=== PATIENT | male | born 1980 | race American Indian/Alaskan Native ===

== ENCOUNTER 2016-12-21 17:15 | Emergency (ER) | payer BC ==
--- NOTE | 2016-12-21 17:30 | ED PDOC ---
Arrival/HPI - General Time Seen by Provider: 12/21/16 17:29 Historian: Patient - History of Present Illness Narrative History of Present Illness (Text): 12/21/16 17:30 36 y/o male, no significant pmh, nkda, c/o rt. hand 3rd digit middle finger swelling and pain x 3 days with no fall or trauma. Aching pain, aggravated by touching, no numbness or tingling, able to bend and extend the 3rd digit DIPJ plus PIPJ, no palpitation, no rash, no other medical or psychological complaints. Past Medical History - Provider Review Nursing Documentation Reviewed: Yes Family/Social History - Physician Review Nursing Documentation Reviewed: Yes Family/Social History: Unknown Family HX Allergies/Home Meds Allergies/Adverse Reactions: Allergies No Known Allergies Allergy (Verified 12/21/16 17:38) Review of Systems - Review of Systems Constitutional: absent: Fatigue, Fevers Eyes: absent: Vision Changes ENT: absent: Hearing Changes Respiratory: absent: SOB, Cough Cardiovascular: absent: Chest Pain Gastrointestinal: absent: Abdominal Pain, Nausea, Vomiting Skin: Rash. absent: Pruritis, Skin Lesions, Laceration, Abscess, Ulcer Neurological: absent: Headache, Dizziness, Focal Weakness Physical Exam Vital Signs Reviewed: Yes Vital Signs Temp Pulse Resp BP Pulse Ox 12/21/16 17:38 98.7 F 88 16 131/89 97 Temperature: Afebrile Blood Pressure: Normal Pulse: Regular Respiratory Rate: Normal Appearance: Positive for: Well-Appearing, Non-Toxic, Comfortable Pain Distress: Mild Mental Status: Positive for: Alert and Oriented X 3 - Systems Exam Head: Present: Atraumatic, Normocephalic Pupils: Present: PERRL Extroacular Muscles: Present: EOMI Conjunctiva: Present: Normal Mouth: Present: Moist Mucous Membranes Neck: Present: Normal Range of Motion Respiratory/Chest: Present: Clear to Auscultation, Good Air Exchange. No: Respiratory Distress, Accessory Muscle Use Cardiovascular: Present: Regular Rate and Rhythm, Normal S1, S2. No: Murmurs Abdomen: Present: Normal Bowel Sounds. No: Tenderness, Distention, Peritoneal Signs Back: Present: Normal Inspection Upper Extremity: Present: Normal Inspection, Other (Rt. hand 3rd digit: visible and mild swelling with fluctuancy noted on the ventral aspect of the nailbed borderline region, no streaking or ulcer, FROM without limitation, sensation intact, motor 5/5, +radial pulse, capillary refill< 2 seconds, neurovascular intact. ). No: Cyanosis, Edema Lower Extremity: Present: Normal Inspection. No: Edema Neurological: Present: GCS=15, CN II-XII Intact, Speech Normal Skin: Present: Warm, Dry, Normal Color. No: Rashes Psychiatric: Present: Alert, Oriented x 3, Normal Insight, Normal Concentration Medical Decision Making ED Course and Treatment: 12/21/16 18:31 -keflex/bactrim ds/motrin -sensation intact, motor 5/5, wound irrigate with normal saline 200cc, clean with betadine, sterile procedure, 1% lidocaine approx. 2cc use to digital block the rt. hand 3rd digit, #11 blade made 0.5cm incision with approx. 1cc of purulant abscess drained, bacitracin and gauze dressing, sensation intact, motor 5/5, neurovascular intact. -Discharge home with keflex, bactrim ds, motrin, keep the dressing dry and clean , follow up with your own pmd and hand specialist within 2 days, return to the ER for any new or worsening signs or symptoms. - PA / [employer]INEER / Resident Statement / has reviewed & agrees with the documentation as recorded. Disposition/Present on Arrival - Present on Arrival Any Indicators Present on Arrival: No History of DVT/PE: No History of Uncontrolled Diabetes: No Urinary Catheter: No History of Decub. Ulcer: No - Disposition Have Diagnosis and Disposition been Completed?: Yes Diagnosis: Paronychia Disposition: HOME/ ROUTINE Disposition Time: 18:33 Patient Plan: Discharge Condition: IMPROVED Additional Instructions: -Discharge home with keflex, bactrim ds, motrin, keep the dressing dry and clean , follow up with your own pmd and hand specialist within 2 days, return to the ER for any new or worsening signs or symptoms. Prescriptions: Cephalexin [Keflex] 500 mg PO QID #40 capsule Ibuprofen [Motrin] 600 mg PO QID PRN #30 tab PRN Reason: Other Sulfamethoxazole/Trimethoprim [Bactrim DS 800 mg-160 mg] 1 tab PO BID #20 tab Referrals: Dieter White MD [Primary Care Provider] - Follow up with primary Aashish Jean III, MD [Medical Doctor] - Follow up with primary Forms: WORK NOTE
[2016-12-21 17:42] VITALS: BP 131/89; TEMP 98.7
[2016-12-21] MEDS ORDERED: Tmp-Smz 800 mg-160 mg DS Tab PO STA (18:29)
[2016-12-21 18:37] VITALS: PULSE 84; O2SAT 99
[2016-12-21 18:43] VITALS: RESP 18
== END 2016-12-21 18:43 | disposition home or self-care (01) ==
LOC: ED 17:15 → MERGE 17:15 → ED 18:43
DX: L03.011 Cellulitis of right finger (principal)